=== PATIENT | female | born 1960 | race Two or more races ===

== ENCOUNTER 2018-07-05 12:21 | Emergency (ER) | payer OTHER ==
[~2018-07-05] VITALS: Ht 165.1 cm; Wt 113.4 kg
[2018-07-05 12:30] VITALS: BP 115/65
[2018-07-05] MEDS ORDERED: cefTRIAXone SOD 1,000 MG VL IM ONE (14:45)
== END 2018-07-05 15:36 | disposition home or self-care (01) ==
LOC: ER 12:21
DX: L72.0 Epidermal cyst (principal); B35.6 Tinea cruris; E11.9 Type 2 diabetes mellitus without complications
CPT/HCPCS: 96372; 99283; J0696